=== PATIENT | male | born 1985 | race Caucasian/White ===

== ENCOUNTER 2018-07-12 17:11 | Emergency (ER) | payer OTHER ==
[~2018-07-12] VITALS: Ht 177.8 cm; Wt 100.0 kg
[2018-07-12] MEDS ORDERED: NORVASC10 M1 PO (17:35)
[2018-07-12] MEDS ORDERED: KEPPRA500 M2 PO (17:35)
[2018-07-12] MEDS ORDERED: TOPAMAX100 MG PO (17:36)
[2018-07-12] MEDS ORDERED: CARAFATE1 GM PO (17:36)
[2018-07-12] MEDS ORDERED: BENADRYL 25MG C25 MG PO (17:36)
[2018-07-12] MEDS ORDERED: LIPITOR20 MG PO (17:37)
[2018-07-12] MEDS ORDERED: [UNRECOGNIZED DRUG - OTHER] PO (17:38)
[2018-07-12] MEDS ORDERED: VIMPAT200 MG PO (17:38)
[2018-07-12 17:41] LABS: HEMATOCRIT 40.6 % (39.0-50.0); HEMOGLOBIN 14.4 g/dl (14.0-18.0); IMMATURE GRANULOCYTES 0.3 % (0.0-5.0); MEAN CELL VOLUME 86.9 fL CALC (80.0-100.0); MEAN CORPUSCULAR HGB 30.8 pG CALC (26.0-32.0); MEAN CORPUSCULAR HGB CONC 35.5 g/L CALC (32.0-36.0); NEUT# 5.17 thou/uL (1.82-7.42); RED BLOOD COUNT 4.67 mill/uL (4.70-6.10); RED CELL DISTRI WIDTH 12.1 % (11.5-15.5)
[2018-07-12 17:54] LABS: ALKALINE PHOSPHATASE 66 u/l (38-126); ANION GAP 17 (6-22 (CALC)); BILIRUBIN, TOTAL 0.4 mg/dL (0.0-1.4); BUN 11 mg/dL (9-20); BUN/CREATININE RATIO 10 (12-20 (CALC)); CARBON DIOXIDE 22 mmol/l (22-30); CHLORIDE 109 mmol/l (95-108); CREATININE 1.1 mg/dL (0.7-1.3); ETHYL ALCOHOL 0 mg/dl (0-30); GFR > 60 ML/MIN (>=60 (CALC)); GFR FOR AFR.AMER. > 60 ML/MIN (>=60 (CALC)); POTASSIUM 3.3 mmol/l (3.5-5.1); SGOT/AST 17 u/l (17-59); SODIUM 144 mmol/l (137-146); TOTAL PROTEIN 7.9 g/dL (6.3-8.2)
[2018-07-12 17:55] LABS: BARBITURATES NEGATIVE (NEGATIVE); COCAINE NEGATIVE (NEGATIVE); METHADONE NEGATIVE (NEGATIVE); OXCYCODONE NEGATIVE (NEGATIVE); TETRAHYDROCANNABIONOL NEGATIVE (NEGATIVE); TRICYLIC ANTIDEPRESSANTS NEGATIVE (NEGATIVE)
[2018-07-12 19:10] VITALS: BP 110/72
== END 2018-07-12 19:10 | DRG 101 ==
LOC: ED 17:11
PROVIDERS: Emergency Medicine
DX: R56.9 Unspecified convulsions (principal); R52 Pain, unspecified

== ENCOUNTER 2018-07-13 00:54 | Observation (INO) | payer OTHER ==
[~2018-07-13] VITALS: Ht 170.2 cm; Wt 84.6 kg
[2018-07-13] VITALS (18 sets, daily range): BP systolic 83–174; BP diastolic 47–99
[~2018-07-13 00:54] MED LIST: BENADRYL 25MG C25 MG PO; CARAFATE1 GM PO; KEPPRA500 M2 PO; LIPITOR20 MG PO; NORVASC10 M1 PO; TOPAMAX100 MG PO; VIMPAT200 MG PO; [UNRECOGNIZED DRUG - OTHER] PO
[2018-07-13 01:44] LABS: HEMATOCRIT 41.2 % (39.0-50.0); HEMOGLOBIN 14.9 g/dl (14.0-18.0); IMMATURE GRANULOCYTES 0.1 % (0.0-5.0); MEAN CELL VOLUME 86.7 fL CALC (80.0-100.0); MEAN CORPUSCULAR HGB 31.4 pG CALC (26.0-32.0); MEAN CORPUSCULAR HGB CONC 36.2 g/L CALC (32.0-36.0); NEUT# 4.56 thou/uL (1.82-7.42); RED BLOOD COUNT 4.75 mill/uL (4.70-6.10); RED CELL DISTRI WIDTH 12.2 % (11.5-15.5)
[2018-07-13 02:00] LABS: ALBUMIN 4.9 g/dL (3.2-5.0); ALKALINE PHOSPHATASE 62 u/l (38-126); ANION GAP 19 (6-22 (CALC)); BILIRUBIN, TOTAL 0.4 mg/dL (0.0-1.4); BUN 11 mg/dL (9-20); BUN/CREATININE RATIO 11 (12-20 (CALC)); CARBON DIOXIDE 21 mmol/l (22-30); CHLORIDE 109 mmol/l (95-108); GFR > 60 ML/MIN (>=60 (CALC)); GFR FOR AFR.AMER. > 60 ML/MIN (>=60 (CALC)); POTASSIUM 3.8 mmol/l (3.5-5.1); SGOT/AST 20 u/l (17-59); SODIUM 144 mmol/l (137-146); TOTAL PROTEIN 7.9 g/dL (6.3-8.2)
== END 2018-07-13 13:24 | DRG 101 ==
LOC: ED 00:54 → ED-I 01:38 → ED 02:06 → ICU 02:07
PROVIDERS: Emergency Medicine; ADMIT Internal Medicine Nephrology; ATTEND Internal Medicine Nephrology
PROC: 0BH17EZ Insertion of Endotracheal Airway into Trachea, Via Natural or Artificial Opening (ICD-10-PCS; principal; 2018-07-13)
PROC: 5A1935Z Respiratory Ventilation, Less than 24 Consecutive Hours (ICD-10-PCS; 2018-07-13)
PROC: 05HY33Z Insertion of Infusion Device into Upper Vein, Percutaneous Approach (ICD-10-PCS; 2018-07-13)
DX: G40.401 Other generalized epilepsy and epileptic syndromes, not intractable, with status epilepticus (principal); I10 Essential (primary) hypertension; E78.5 Hyperlipidemia, unspecified; K21.9 Gastro-esophageal reflux disease without esophagitis; T42.6X6A Underdosing of other antiepileptic and sedative-hypnotic drugs, initial encounter; Y92.149 Unspecified place in prison as the place of occurrence of the external cause; Z91.138 Patient's unintentional underdosing of medication regimen for other reason; Z88.8 Allergy status to other drugs, medicaments and biological substances
CPT/HCPCS: J1953; J2060; J3360

== ENCOUNTER 2018-07-21 00:21 | Inpatient (IN) | payer OTHER ==
[~2018-07-21] VITALS: Ht 170.2 cm; Wt 86.2 kg
[2018-07-21] VITALS (32 sets, daily range): BP systolic 81–192; BP diastolic 46–109
[2018-07-21 01:20] LABS: HEMATOCRIT 42.3 % (39.0-50.0); HEMOGLOBIN 14.3 g/dl (14.0-18.0); IMMATURE GRANULOCYTES 2.5 % (0.0-5.0); MEAN CELL VOLUME 89.4 fL CALC (80.0-100.0); MEAN CORPUSCULAR HGB 30.2 pG CALC (26.0-32.0); MEAN CORPUSCULAR HGB CONC 33.8 g/L CALC (32.0-36.0); NEUT# 3.14 thou/uL (1.82-7.42); RED BLOOD COUNT 4.73 mill/uL (4.70-6.10); RED CELL DISTRI WIDTH 12.1 % (11.5-15.5)
[2018-07-21 01:24] LABS: ALBUMIN 4.3 g/dL (3.2-5.0); ALKALINE PHOSPHATASE 68 u/l (38-126); ANION GAP 16 (6-22 (CALC)); BILIRUBIN, TOTAL 0.3 mg/dL (0.0-1.4); BUN 15 mg/dL (9-20); BUN/CREATININE RATIO 21 (12-20 (CALC)); CARBON DIOXIDE 22 mmol/l (22-30); CHLORIDE 107 mmol/l (95-108); CREATININE 0.7 mg/dL (0.7-1.3); GFR > 60 ML/MIN (>=60 (CALC)); GFR FOR AFR.AMER. > 60 ML/MIN (>=60 (CALC)); POTASSIUM 3.8 mmol/l (3.5-5.1); SGOT/AST 26 u/l (17-59); SODIUM 141 mmol/l (137-146); TOTAL PROTEIN 7.8 g/dL (6.3-8.2)
== END 2018-07-21 12:49 | disposition short-term general hospital (02) | DRG 101 ==
LOC: ED 00:21 → ED-I 01:55 → ED 01:55 → ICU 02:19
PROVIDERS: Emergency Medicine; ADMIT Internal Medicine; ATTEND Internal Medicine
PROC: 0BH17EZ Insertion of Endotracheal Airway into Trachea, Via Natural or Artificial Opening (ICD-10-PCS; principal; 2018-07-21)
PROC: 5A1935Z Respiratory Ventilation, Less than 24 Consecutive Hours (ICD-10-PCS; 2018-07-21)
DX: G40.201 Localization-related (focal) (partial) symptomatic epilepsy and epileptic syndromes with complex partial seizures, not intractable, with status epilepticus (principal); R06.89 Other abnormalities of breathing; I10 Essential (primary) hypertension; T42.76XA Underdosing of unspecified antiepileptic and sedative-hypnotic drugs, initial encounter; Y92.149 Unspecified place in prison as the place of occurrence of the external cause
CPT/HCPCS: J1953; J2060; J3360